=== PATIENT | female | born 1990 | race Caucasian/White ===

== ENCOUNTER 2016-05-05 15:37 | Emergency (ER) | payer SELFPAY ==
[~2016-05-05] VITALS: Ht 167.6 cm; Wt 65.0 kg
[~2016-05-05 15:37] MED LIST: PREVTAB PO; TYLE3 PO; ZOFR4TAB3 PO
[2016-05-05 15:42] VITALS: BP 154/88; PULSE 80; RESP 20; TEMP 98.3; O2SAT 97
[2016-05-05 16:07] LABS: BASOPHIL % 0.5 % (0.0-2.0); EOSINOPHIL # 0.2 TH/MM3 (0-0.4); EOSINOPHIL % 2.1 % (0.0-4.0); HEMATOCRIT 38.7 % (35.0-46.0); HEMO FLAGS DIFF FINAL; LYMPH % 33.9 % (9.0-44.0); LYMPHOCYTE # 2.5 TH/MM3 (1.0-4.8); MEAN CELL VOLUME 90.9 FL (80.0-100.0); MEAN CORPUSCULAR HEMOGLOBIN 30.8 PG (27.0-34.0); MEAN CORPUSCULAR HGB CONC 33.9 % (32.0-36.0); MONO % 9.3 % (0.0-8.0); NEUT % 54.2 % (16.0-70.0); PLATELET COUNT 231 TH/MM3 (150-450); RED BLOOD COUNT 4.26 MIL/MM3 (4.00-5.30); RED CELL DISTRIBUTION WIDTH 12.7 % (11.6-17.2); WHITE BLOOD COUNT 7.3 TH/MM3 (4.0-11.0)
[2016-05-05] MEDS ORDERED: SODIUM CHLOR 0.9% 1000 ML INJ 1,000 ML IV ONE (16:15)
[2016-05-05 16:16] LABS: BLOOD, URINE NEG (NEG); GLUCOSE,URINE NEG (NEG); KETONE, URINE NEG (NEG); NITRITE,URINE NEG (NEG); PH, URINE 6.5 (5.0-8.5); SQUAMOUS EPITHELIAL CELL URINE <1 /hpf (0-5); URINE COLOR LIGHT-YELLOW (YELLW/STRAW)
--- NOTE | 2016-05-05 16:18 | PD ---
HPI Chief Complaint: Cold / Flu Symptoms Time Seen by Provider: 16:14 Travel History International Travel<30 days: No Contact w/Intl Traveler<30days: No Traveled to known affect area: No History of Present Illness HPI 25-year-old female presents to the emergency department for evaluation of flulike symptoms for 2 days. She reports congestion, cough, intermittent headaches, fever, sore throat. She also reports right flank pain. Patient states her fever has been up to 101. She states this was yesterday evening. 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 Patient denies any chronic medical problems. She takes no prescribed medications. She is not on control. She denies any recent travel or surgery. No hemoptysis. She denies any history of asthma, COPD, pneumonia. Patient denies any abdominal pain. No vomiting. PFSH Past Medical History Arthritis: No Asthma: No Blood Disorders: No Anxiety: Yes Depression: No Heart Rhythm Problems: No Cancer: No Cardiovascular Problems: No High Cholesterol: No Chemotherapy: No Chest Pain: No Congestive Heart Failure: No COPD: No Cerebrovascular Accident: No Diminished Hearing: No Endocrine: Yes (hypoglycemic) GERD: No Genitourinary: Yes (pyelonephritis and UTIs) Headaches: Yes Hiatal Hernia: No Immune Disorder: Yes (chris dempsey) Kidney Stones: No Musculoskeletal: No Neurologic: Yes (SEIZURES) Psychiatric: Yes Reproductive: No Respiratory: Yes (R/T SEIZURES) Migraines: No Radiation Therapy: No Renal Failure: No Seizures: Yes (PSEUDO-NOT TAKING MEDICATIONS) Sickle Cell Disease: No Sleep Apnea: No Thyroid Disease: No Ulcer: No PNEUMOCCOCAL Vaccine (Year): 2 ?: Not Menopausal: No : 0 Para: 0 Miscarriage: 0 : 0 Ovarian Cysts: Yes (hemorrhagic right ovarian cyst 12-31-12) Past Surgical History Abdominal Surgery: No AICD: No Arteriovenous Shunt: No Cardiac Surgery: No Ear Surgery: No Endocrine Surgery: No Eye Surgery: No Genitourinary Surgery: No Insulin Pump: No Joint Replacement: No Oral Surgery: No Pacemaker: No Thoracic Surgery: No Other Surgery: Yes () Social History Alcohol Use: Yes (OCCASIONAL) Tobacco Use: No Substance Use: No Allergies-Medications (Allergen,Severity, Reaction): Coded Allergies: Bactrim (Verified Allergy, Severe, HIVES/SOB, 01/28/16) Sulfa (Verified Allergy, Severe, HIVES/SOB, 01/28/16) Tegretol (Verified Allergy, Severe, rash/NIGHTMARES, 01/28/16) Tramadol (Verified Allergy, Severe, 01/28/16) Ambien (Verified Adverse Reaction, Unknown, NONE, 01/28/16) PT STATES SHE IS NOT ALLERGIC Reported Meds & Prescriptions Reported Meds & Active Scripts Active No Active Prescriptions or Reported Medications Review of Systems Except as stated in HPI: all other systems reviewed are Neg Physical Exam Narrative GENERAL: Well-developed well-nourished female patient, ambulatory. Afebrile. SKIN: Warm and dry. HEAD: Normocephalic. Atraumatic. ENT: Mucosa pink and moist. Mild erythema without exudates. No uvular edema. No uvular, palatal, or tonsillar deviation. Airway patent. Nasal turbinates appear normal without nasal blood, purulent drainage or septal hematoma. Bilateral tympanic membranes are clear without erythema or perforation. EYES: No scleral icterus. No injection or drainage. NECK: Supple, trachea midline. No JVD or lymphadenopathy. CARDIOVASCULAR: Regular rate and rhythm without murmurs, gallops, or rubs. RESPIRATORY: Breath sounds equal bilaterally. No accessory muscle use. Lungs sounds are clear to auscultation. GASTROINTESTINAL: Abdomen soft, non-tender, nondistended. MUSCULOSKELETAL: No cyanosis, or edema. BACK: Nontender without obvious deformity. Mild right CVA tenderness. Data Data Last Documented VS Vital Signs Date Time Temp Pulse Resp B/P Pulse Ox O2 Delivery O2 Flow Rate FiO2 05/05/16 15:42 98.3 80 20 154/88 97 Room Air Orders Urinalysis - C+S If Indicated (05/05/16 15:44) Ed Urine Pregnancytest Poc (05/05/16 15:44) Complete Blood Count With Diff (05/05/16 15:44) Basic Metabolic Panel (Bmp) (05/05/16 15:44) Influenzae A/B Antigen (05/05/16 15:44) Group A Rapid Strep Screen (05/05/16 16:13) Sodium Chlor 0.9% 1000 Ml Inj (Ns 1000 M (05/05/16 16:15) Ibuprofen (Motrin) (05/05/16 16:45) Strep Culture (Group A) (05/05/16 16:35) Labs Laboratory Tests Test 05/05/16 15:50 White Blood Count 7.3 TH/MM3 Red Blood Count 4.26 MIL/MM3 Hemoglobin 13.1 GM/DL Hematocrit 38.7 % Mean Corpuscular Volume 90.9 FL Mean Corpuscular Hemoglobin 30.8 PG Mean Corpuscular Hemoglobin 33.9 % Concent Red Cell Distribution Width 12.7 % Platelet Count 231 TH/MM3 Mean Platelet Volume 8.1 FL Neutrophils (%) (Auto) 54.2 % Lymphocytes (%) (Auto) 33.9 % Monocytes (%) (Auto) 9.3 % Eosinophils (%) (Auto) 2.1 % Basophils (%) (Auto) 0.5 % Neutrophils # (Auto) 4.0 TH/MM3 Lymphocytes # (Auto) 2.5 TH/MM3 Monocytes # (Auto) 0.7 TH/MM3 Eosinophils # (Auto) 0.2 TH/MM3 Basophils # (Auto) 0.0 TH/MM3 CBC Comment DIFF FINAL Differential Comment Urine Color LIGHT-YELLOW Urine Turbidity CLEAR Urine pH 6.5 Urine Specific [place] 1.016 Urine Protein NEG mg/dL Urine Glucose (UA) NEG mg/dL Urine Ketones NEG mg/dL Urine Occult Blood NEG Urine Nitrite NEG Urine Bilirubin NEG Urine Urobilinogen LESS THAN 2.0 MG/DL Urine Leukocyte Esterase NEG Urine RBC LESS THAN 1 /hpf Urine WBC LESS THAN 1 /hpf Urine Squamous Epithelial <1 /hpf Cells Microscopic Urinalysis Comment CULT NOT INDICATED Sodium Level 137 MEQ/L Potassium Level 3.9 MEQ/L Chloride Level 106 MEQ/L Carbon Dioxide Level 23.6 MEQ/L Anion Gap 7 MEQ/L Blood Urea Nitrogen 12 MG/DL Creatinine 0.80 MG/DL Estimat Glomerular Filtration 87 ML/MIN Rate Random Glucose 84 MG/DL Calcium Level 8.2 MG/DL [facility] Medical Decision Making Medical Screen Exam Complete: Yes Emergency Medical Condition: Yes Medical Record Reviewed: Yes Differential Diagnosis Influenza versus strep pharyngitis versus UTI Narrative Course 25-year-old female presents to the emergency department for evaluation of flulike symptoms for 2 days. Workup was initiated by protocol in triage. CBC, BMP, UA, influenza, strep swab are ordered and pending. Urine test is negative. CBC shows no acute abnormalities. BMP shows no acute abnormalities. UA is negative for infection. Influenza is negative. Strep is negative. Symptoms are most consistent with a viral syndrome. She is to rest. Tylenol or her Motrin [id number]. Her primary care physician. She is to return for any acute worsening of symptoms. Diagnosis Primary Impression: Viral syndrome Referrals: Primary Care Physician call for appointment Patient Instructions: General Instructions, Viral Syndrome (ED) Departure Forms: Tests/Procedures, Work Release Enter return to work date: May 08, 2016 Additional Instructions: Rest. Tylenol/Motrin as needed. Follow up with a primary care physician. Return to the emergency department for any acute worsening of symptoms. Med/Other Pt SpecificInfo: No Change to Meds Scripts No Active Prescriptions or Reported Meds Disposition: 01 DISCHARGE HOME Condition: Stable Arlin Craig May 05, 2016 16:18
[2016-05-05 16:21] LABS: COMMENT (UR) CULT NOT INDICATED; CULTURE IF INDICATED CULT NOT INDICATED
[2016-05-05 16:22] LABS: BICARBONATE 23.6 MEQ/L (21.0-32.0); POTASSIUM 3.9 MEQ/L (3.5-5.1)
[2016-05-05] MEDS ORDERED: IBUPROFEN 600 MG TAB PO ONE (16:45)
[2016-05-05 18:26] VITALS: BP 131/70
== END 2016-05-05 18:28 | disposition home or self-care (01) ==
LOC: NEPC 15:37
DX: B34.9 Viral infection, unspecified (principal)
CPT/HCPCS: 80048; 81001; 84703; 85025; 87081; 87804; 87880; 96360; 99284; J7030

== ENCOUNTER 2016-10-01 17:22 | Emergency (ER) | payer SELFPAY ==
[~2016-10-01] VITALS: Ht 167.6 cm; Wt 59.0 kg
[2016-10-01 17:23] VITALS: BP 112/79; PULSE 78; RESP 15; TEMP 98.2; O2SAT 98
--- NOTE | 2016-10-01 17:35 | PD ---
Physical Exam Date Seen by Provider: October 01, 2016 Time Seen by Provider: 17:34 Narrative 26 yo female here for evaluation of weakness, vaginal bleeding. Nausea and vomiting. Not able to keep anything down. Per patient about two weeks she had "ruptured cysts". She has been bleeding a lot. Headache. Feet pain as well. Pain is 8/10. Vitals sign stable. Patient awaiting bed placement. Data Data Last Documented VS Vital Signs Date Time Temp Pulse Resp B/P Pulse Ox O2 Delivery O2 Flow Rate FiO2 10/01/16 17:23 98.2 78 15 112/79 98 MDM Medical Record Reviewed: Yes Supervised Visit with DARREN: No Scripts No Active Prescriptions or Reported Meds Juancho Glass October 01, 2016 17:35
[2016-10-01 18:04] VITALS: BP 120/73; PULSE 66; RESP 18; TEMP 99.1; O2SAT 99
[2016-10-01] MEDS ORDERED: DOXY1CAP91 (18:12)
[2016-10-01] MEDS ORDERED: SODIUM CHLOR 0.9% 1000 ML INJ 1,000 ML IV SCH (18:18)
--- NOTE | 2016-10-01 18:23 | PD ---
HPI Chief Complaint: [employer] Problem/Complaint Time Seen by Provider: 18:12 Travel History International Travel<30 days: No Contact w/Intl Traveler<30days: No Traveled to known affect area: No History of Present Illness HPI This patient was evaluated in the presence of a female nurse. 26-year-old female with history of endometriosis, ovarian cyst presents for evaluation of vaginal bleeding, abdominal pain, nausea and vomiting. She's been having lower abdominal cramping for 2 weeks. She was seen at an emergency room at [facility] on September 19. She reports ultrasound, lab work, pelvic examination was performed. She was told that she has bacterial vaginosis as well as likely some ruptured cysts. She was given prescriptions for Flagyl, Zofran, doxycycline. She has completed the Flagyl, using doxycycline as prescribed, cannot afford the Zofran. Her symptoms have persisted. She has had some vaginal bleeding for the past several days as well as difficulty keeping any food or fluid down. She is feeling generally weak. She reports irregular menstrual periods, does not know when her last one was. She has been using oxycodone for pain control. Denies any fevers or chills, dysuria, flank pain. No other complaints. PFSH Past Medical History Arthritis: No Asthma: No Blood Disorders: No Anxiety: Yes Depression: No Heart Rhythm Problems: No Cancer: No Cardiovascular Problems: No High Cholesterol: No Chemotherapy: No Chest Pain: No Congestive Heart Failure: No COPD: No Cerebrovascular Accident: No Diminished Hearing: No Endocrine: Yes (hypoglycemic) Gastrointestinal Disorders: No GERD: No Genitourinary: Yes (pyelonephritis and UTIs) Headaches: Yes Hiatal Hernia: No Heparin Induced Thrombocytopen: No Hypertension: No Immune Disorder: Yes (chris dempsey) Implanted Vascular Access Dvce: No Kidney Stones: No Musculoskeletal: No Neurologic: Yes (SEIZURES) Psychiatric: Yes Reproductive: No Respiratory: Yes (R/T SEIZURES) Migraines: No Radiation Therapy: No Renal Failure: No Seizures: Yes Sickle Cell Disease: No Sleep Apnea: No Thyroid Disease: No Ulcer: No PNEUMOCCOCAL Vaccine (Year): 2 ?: Unknown LMP: august 2016 Menopausal: No : 0 Para: 0 Miscarriage: 0 : 0 Ovarian Cysts: Yes Past Surgical History Abdominal Surgery: No AICD: No Arteriovenous Shunt: No Cardiac Surgery: No Ear Surgery: No Endocrine Surgery: No Eye Surgery: No Genitourinary Surgery: No Gynecologic Surgery: Yes (2013) Insulin Pump: No Joint Replacement: No Neurologic Surgery: No Oral Surgery: No Pacemaker: No Thoracic Surgery: No Other Surgery: Yes () Social History Alcohol Use: No Tobacco Use: No Substance Use: No Allergies-Medications (Allergen,Severity, Reaction): Coded Allergies: Bactrim (Verified Allergy, Severe, HIVES/SOB, 10/01/16) Sulfa (Verified Allergy, Severe, HIVES/SOB, 10/01/16) Tegretol (Verified Allergy, Severe, rash/NIGHTMARES, 10/01/16) Tramadol (Verified Allergy, Severe, 10/01/16) Ambien (Verified Adverse Reaction, Unknown, NONE, 10/01/16) PT STATES SHE IS NOT ALLERGIC Reported Meds & Prescriptions Reported Meds & Active Scripts Active Ranitidine (Ranitidine HCl) 150 Mg Tab 150 Mg PO BID 14 Days Reglan (Metoclopramide HCl) 10 Mg Tab 10 Mg PO TIDAC 5 Days Reported Doxycycline (Doxycycline (Monohydrate)) 100 Mg Cap 100 Mg BID Review of Systems Except as stated in HPI: all other systems reviewed are Neg Physical Exam Narrative GENERAL: Well-developed well-nourished female in no acute distress SKIN: Warm and dry. HEAD: Atraumatic. Normocephalic. EYES: Pupils equal and round. No scleral icterus. No injection or drainage. ENT: No nasal bleeding or discharge. Mucous membranes pink and moist. NECK: Trachea midline. No JVD. CARDIOVASCULAR: Regular rate and rhythm. No murmur appreciated. RESPIRATORY: No accessory muscle use. Clear to auscultation. Breath sounds equal bilaterally. GASTROINTESTINAL: Abdomen soft, mild tenderness to palpation in lower quadrants without guarding. MUSCULOSKELETAL: No obvious deformities. No edema. NEUROLOGICAL: Awake and alert. No obvious cranial nerve deficits. Motor grossly within normal limits. Normal speech. PSYCHIATRIC: Appropriate mood and affect; insight and judgment normal. Data Data Last Documented VS Vital Signs Date Time Temp Pulse Resp B/P Pulse Ox O2 Delivery O2 Flow Rate FiO2 10/01/16 20:15 70 18 111/52 98 Room Air 10/01/16 18:04 99.1 Orders Complete Blood Count With Diff (10/01/16 18:18) Comprehensive Metabolic Panel (10/01/16 18:18) Urinalysis - C+S If Indicated (10/01/16 18:18) Iv Access Insert/Monitor (10/01/16 18:18) Ed Urine Pregnancytest Poc (10/01/16 18:18) Lipase (10/01/16 18:18) Ondansetron Inj (Zofran Inj) (10/01/16 18:30) Sodium Chlor 0.9% 1000 Ml Inj (Ns 1000 M (10/01/16 18:18) Ketorolac Inj (Toradol Inj) (10/01/16 18:30) Pantoprazole Inj (Protonix Inj) (10/01/16 20:30) Dicyclomine Inj (Bentyl Inj) (10/01/16 20:30) Al-Mag Hy-Si 40-40-4 Mg/Ml Liq (Mag-Al P (10/01/16 20:30) Lidocaine 2% Viscous (Xylocaine 2% Visco (10/01/16 20:30) Us Pelvis Comp W Dop Transvag (10/01/16 18:18) Ondansetron Inj (Zofran Inj) (10/01/16 21:45) Labs Laboratory Tests Test 10/01/16 10/01/16 18:20 19:30 White Blood Count 5.8 TH/MM3 Red Blood Count 4.15 MIL/MM3 Hemoglobin 12.6 GM/DL Hematocrit 38.2 % Mean Corpuscular Volume 92.0 FL Mean Corpuscular Hemoglobin 30.3 PG Mean Corpuscular Hemoglobin 33.0 % Concent Red Cell Distribution Width 12.2 % Platelet Count 233 TH/MM3 Mean Platelet Volume 8.3 FL Neutrophils (%) (Auto) 54.1 % Lymphocytes (%) (Auto) 40.1 % Monocytes (%) (Auto) 4.6 % Eosinophils (%) (Auto) 1.0 % Basophils (%) (Auto) 0.2 % Neutrophils # (Auto) 3.1 TH/MM3 Lymphocytes # (Auto) 2.3 TH/MM3 Monocytes # (Auto) 0.3 TH/MM3 Eosinophils # (Auto) 0.1 TH/MM3 Basophils # (Auto) 0.0 TH/MM3 CBC Comment DIFF FINAL Differential Comment Sodium Level 141 MEQ/L Potassium Level 4.0 MEQ/L Chloride Level 106 MEQ/L Carbon Dioxide Level 25.6 MEQ/L Anion Gap 9 MEQ/L Blood Urea Nitrogen 9 MG/DL Creatinine 0.67 MG/DL Estimat Glomerular Filtration 106 ML/MIN Rate Random Glucose 86 MG/DL Calcium Level 9.0 MG/DL Total Bilirubin 0.8 MG/DL Aspartate Amino Transf 16 U/L (AST/SGOT) Alanine Aminotransferase 22 U/L (ALT/SGPT) Alkaline Phosphatase 39 U/L Total Protein 7.3 GM/DL Albumin 4.2 GM/DL Lipase 90 U/L Urine Color YELLOW Urine Turbidity HAZY Urine pH 5.5 Urine Specific [place] 1.015 Urine Protein NEG mg/dL Urine Glucose (UA) NEG mg/dL Urine Ketones NEG mg/dL Urine Occult Blood TRACE Urine Nitrite NEG Urine Bilirubin NEG Urine Urobilinogen LESS THAN 2.0 MG/DL Urine Leukocyte Esterase NEG Urine RBC 1 /hpf Urine WBC 1 /hpf Urine Squamous Epithelial 7 /hpf Cells Urine Mucus FEW /lpf Microscopic Urinalysis Comment CULT NOT INDICATED MDM Medical Decision Making Medical Screen Exam Complete: Yes Emergency Medical Condition: Yes Medical Record Reviewed: Yes Differential Diagnosis Abnormal uterine bleeding, ruptured ovarian cyst, cystitis, ovarian torsion, pelvic inflammatory disease, tubo-ovarian abscess, endometriosis, dysmenorrhea Narrative Course 26 her old female with history of endometriosis presents with pelvic cramping for the past few weeks, nausea and vomiting, vaginal bleeding over the past several days. Seen at an outside emergency room where lab work, imaging studies were performed and she was told that she likely had a ruptured ovarian cyst as well as bacterial vaginosis. She was unable to afford the Zofran. She has been using doxycycline, Flagyl and oxycodone as prescribed. Examination reveals mild tenderness to palpation in the lower abdomen. Otherwise unremarkable. Vital signs are stable. She does not appear acutely dehydrated on initial examination. Plan is for basic lab work, ultrasound, IV fluids, Zofran and Toradol. Lab work is been reviewed. Labwork is essentially unremarkable. Upon reexamiantion she endorses some burning epigastric discomfort, therefore Protonix, GI cocktail and Bentyl has been ordered. The patient was signed out pending US results at the end of my shift, likely disposition home. Scripts Ranitidine 150 Mg [id number] Mg PO BID 14 Days Ref 0 Prov:Elis Prado MD 10/01/16 Metoclopramide (Reglan)10 Mg Tab10 Mg PO TIDAC 5 Days Ref 0 Prov:Elis Prado MD 10/01/16 Ortiz Escalante October 01, 2016 18:23
[2016-10-01] MEDS ORDERED: ONDANSETRON HCL 4 MG/2 ML VIAL IVP ONE (18:30)
[2016-10-01] MEDS ORDERED: KETOROLAC TROMETHAMINE 30 MG/ML (IVP) VIAL IVP ONE (18:30)
[2016-10-01 18:34] VITALS: BP 119/81; PULSE 57; RESP 15; O2SAT 98
[2016-10-01 19:08] LABS: AUTOMATED NEUTROPHIL # 3.1 TH/MM3 (1.8-7.7); BASOPHIL % 0.2 % (0.0-2.0); EOSINOPHIL # 0.1 TH/MM3 (0-0.4); HEMATOCRIT 38.2 % (35.0-46.0); HEMO FLAGS DIFF FINAL; LYMPH % 40.1 % (9.0-44.0); LYMPHOCYTE # 2.3 TH/MM3 (1.0-4.8); MEAN CORPUSCULAR HEMOGLOBIN 30.3 PG (27.0-34.0); MONO % 4.6 % (0.0-8.0); NEUT % 54.1 % (16.0-70.0); PLATELET COUNT 233 TH/MM3 (150-450); RED BLOOD COUNT 4.15 MIL/MM3 (4.00-5.30); RED CELL DISTRIBUTION WIDTH 12.2 % (11.6-17.2); WHITE BLOOD COUNT 5.8 TH/MM3 (4.0-11.0)
[2016-10-01 19:26] LABS: ALT (GPT) 22 U/L (10-53); ANION GAP 9 MEQ/L (5-15); AST (GOT) 16 U/L (15-37); BICARBONATE 25.6 MEQ/L (21.0-32.0); BLOOD UREA NITROGEN 9 MG/DL (7-18); CHLORIDE 106 MEQ/L (98-107); GLOMERULAR FILTRATION RATE 106 ML/MIN (>89); SODIUM (NA) 141 MEQ/L (136-145)
[2016-10-01 19:28] LABS: ALKALINE PHOSPHATASE 39 U/L (45-117); TOTAL BILIRUBIN ADULT 0.8 MG/DL (0.2-1.0)
[2016-10-01 19:49] LABS: BLOOD, URINE TRACE (NEG); COMMENT (UR) CULT NOT INDICATED; CULTURE IF INDICATED CULT NOT INDICATED; GLUCOSE,URINE NEG (NEG); KETONE, URINE NEG (NEG); MUCUS URINE FEW /lpf (OCC); NITRITE,URINE NEG (NEG); PH, URINE 5.5 (5.0-8.5); SQUAMOUS EPITHELIAL CELL URINE 7 /hpf (0-5); URINE COLOR YELLOW (YELLW/STRAW)
[2016-10-01 20:15] VITALS: BP 111/52; PULSE 70; RESP 18; O2SAT 98
[2016-10-01] MEDS ORDERED: DICYCLOMINE HCL 20 MG/2 ML VIAL IM ONE (20:30)
[2016-10-01] MEDS ORDERED: LIDOCAINE VISCOUS 2% SOLN 15 ML UDC PO ONE (20:30)
[2016-10-01] MEDS ORDERED: ALUMINUM/MAGNESIUM/SIMETH 30 ML CUP PO ONE (20:30)
[2016-10-01] MEDS ORDERED: PANTOPRAZOLE SODIUM 40 MG VIAL IVP ONE (20:30)
[2016-10-01] MEDS ORDERED: ONDANSETRON HCL 4 MG/2 ML VIAL IV PUSH ONE (21:45)
--- NOTE | 2016-10-01 21:58 | RADRPT ---
EXAM DATE/TIME: 10/01/2016 20:51 [facility] COMPARISON: No previous studies available for comparison. INDICATIONS : Pelvic pain. MEDICAL HISTORY : . Seizures. Ovarian cysts. Endometreosis. Pyelonephritis. Hypoglycemia. Anxiety. Didi dempsey syndrome. SURGICAL HISTORY : Laproscopic endometriosis removal. ENCOUNTER: Initial ACUITY: 2 weeks PAIN SCORE: 9/10 LOCATION: Bilateral pelvis MEASUREMENTS: UTERUS: 6.9 x 4.3 x 3.0 cm ENDOMETRIAL STRIPE: 5 mm RIGHT OVARY: 4.5 x 3.0 x 2.1 cm LEFT OVARY: 4.0 x 2.6 x 2.1 cm FINDINGS: UTERUS: The myometrium has homogeneous echotexture without mass.Uterus is retroverted. RIGHT OVARY: Ovary contains no mass or significant cystic lesion.Follicular cysts are noted. LEFT OVARY: Ovary contains no mass or significant cystic lesion.Follicular cysts are noted. MISCELLANEOUS: Trace amount of free fluid. CONCLUSION: Trace amount of free fluid observed. No acute abnormality. Jamie Fields Jr., MD on October 01, 2016 at 21:54 Board Certified Radiologist. This report was verified electronically.
[2016-10-01] MEDS ORDERED: RANI150T PO (22:13)
[2016-10-01] MEDS ORDERED: REGL10TA5 PO (22:13)
--- NOTE | 2016-10-01 22:14 | PD ---
Physical Exam Time Seen by Provider: 22:14 Narrative The patient was signed out to me pending ultrasound results. Data Data Last Documented VS Vital Signs Date Time Temp Pulse Resp B/P Pulse Ox O2 Delivery O2 Flow Rate FiO2 10/01/16 20:15 70 18 111/52 98 Room Air 10/01/16 18:04 99.1 Orders Complete Blood Count With Diff (10/01/16 18:18) Comprehensive Metabolic Panel (10/01/16 18:18) Urinalysis - C+S If Indicated (10/01/16 18:18) Iv Access Insert/Monitor (10/01/16 18:18) Ed Urine Pregnancytest Poc (10/01/16 18:18) Lipase (10/01/16 18:18) Ondansetron Inj (Zofran Inj) (10/01/16 18:30) Sodium Chlor 0.9% 1000 Ml Inj (Ns 1000 M (10/01/16 18:18) Ketorolac Inj (Toradol Inj) (10/01/16 18:30) Pantoprazole Inj (Protonix Inj) (10/01/16 20:30) Dicyclomine Inj (Bentyl Inj) (10/01/16 20:30) Al-Mag Hy-Si 40-40-4 Mg/Ml Liq (Mag-Al P (10/01/16 20:30) Lidocaine 2% Viscous (Xylocaine 2% Visco (10/01/16 20:30) Us Pelvis Comp W Dop Transvag (10/01/16 18:18) Ondansetron Inj (Zofran Inj) (10/01/16 21:45) Labs Laboratory Tests Test 10/01/16 10/01/16 18:20 19:30 White Blood Count 5.8 TH/MM3 Red Blood Count 4.15 MIL/MM3 Hemoglobin 12.6 GM/DL Hematocrit 38.2 % Mean Corpuscular Volume 92.0 FL Mean Corpuscular Hemoglobin 30.3 PG Mean Corpuscular Hemoglobin 33.0 % Concent Red Cell Distribution Width 12.2 % Platelet Count 233 TH/MM3 Mean Platelet Volume 8.3 FL Neutrophils (%) (Auto) 54.1 % Lymphocytes (%) (Auto) 40.1 % Monocytes (%) (Auto) 4.6 % Eosinophils (%) (Auto) 1.0 % Basophils (%) (Auto) 0.2 % Neutrophils # (Auto) 3.1 TH/MM3 Lymphocytes # (Auto) 2.3 TH/MM3 Monocytes # (Auto) 0.3 TH/MM3 Eosinophils # (Auto) 0.1 TH/MM3 Basophils # (Auto) 0.0 TH/MM3 CBC Comment DIFF FINAL Differential Comment Sodium Level 141 MEQ/L Potassium Level 4.0 MEQ/L Chloride Level 106 MEQ/L Carbon Dioxide Level 25.6 MEQ/L Anion Gap 9 MEQ/L Blood Urea Nitrogen 9 MG/DL Creatinine 0.67 MG/DL Estimat Glomerular Filtration 106 ML/MIN Rate Random Glucose 86 MG/DL Calcium Level 9.0 MG/DL Total Bilirubin 0.8 MG/DL Aspartate Amino Transf 16 U/L (AST/SGOT) Alanine Aminotransferase 22 U/L (ALT/SGPT) Alkaline Phosphatase 39 U/L Total Protein 7.3 GM/DL Albumin 4.2 GM/DL Lipase 90 U/L Urine Color YELLOW Urine Turbidity HAZY Urine pH 5.5 Urine Specific [place] 1.015 Urine Protein NEG mg/dL Urine Glucose (UA) NEG mg/dL Urine Ketones NEG mg/dL Urine Occult Blood TRACE Urine Nitrite NEG Urine Bilirubin NEG Urine Urobilinogen LESS THAN 2.0 MG/DL Urine Leukocyte Esterase NEG Urine RBC 1 /hpf Urine WBC 1 /hpf Urine Squamous Epithelial 7 /hpf Cells Urine Mucus FEW /lpf Microscopic Urinalysis Comment CULT NOT INDICATED MDM Supervised Visit with DARREN: No Narrative Course The patient was signed out to me pending pelvic ultrasound results. Please see previous provider's documentation. Essentially this is a 26-year-old female with a history of recurrent pelvic pain secondary to endometriosis with ovarian cysts. She's had pelvic pain for the past 2 weeks and was seen at an outside hospital and told that she had probable ruptured ovarian cysts. The patient states that she's had vaginal bleeding for the last several days and has had nausea and vomiting for 3 days. She is reporting she has a history of gastric ulcer. States that when she has come here for today is because she is having epigastric burning with nausea and vomiting for 3 days. Epigastric pain is aggravated with eating. Abdominal examination reveals mild epigastric tenderness and mild pelvic tenderness. Overall abdominal examination is benign , no peritoneal signs. Patient has been given Toradol, Zofran, GI cocktail, Protonix and Bentyl with some improvement of symptoms. Labs are completely unremarkable. Pelvic ultrasound shows trace amount of free fluid with no acute abnormality. I discussed all findings with the patient. She'll be discharged with Zantac and Reglan. She is instructed to follow up as an outpatient with her PCP. I discussed with the patient that should she develop any worsening of symptoms such as fever, intractable nausea and vomiting, worsening abdominal pain that she return immediately to the emergency department. Patient verbalizes understanding and agreement with treatment plan. Diagnosis Primary Impression: Gastritis Qualified Code: K29.00 - Acute gastritis without hemorrhage, unspecified gastritis type Additional Impression: Pelvic pain Referrals: Primary Care Physician Patient Instructions: General Instructions Additional Instruction: Take medications as prescribed. Follow-up with your Primary Care Physician. Return to the ED for any acute worsening of symptoms. Med/Other Pt SpecificInfo: Prescription(s) given Scripts Ranitidine 150 Mg [id number] Mg PO BID 14 Days Ref 0 Prov:Elis Prado MD 10/01/16 Metoclopramide (Reglan)10 Mg Tab10 Mg PO TIDAC 5 Days Ref 0 Prov:Elis Prado MD 10/01/16 Disposition: 01 DISCHARGE HOME Condition: Stable Rashida Alcantara October 01, 2016 22:14
== END 2016-10-01 23:22 | disposition home or self-care (01) ==
LOC: NEPD 17:22
DX: K29.00 Acute gastritis without bleeding (principal); R10.2 Pelvic and perineal pain
CPT/HCPCS: 76830; 76856; 80053; 81001; 83690; 84703; 85025; 93975; 96361; 96372; 96374; 96375; 96376; 99285; C9113; J0500; J1885; J2405; J7030

== ENCOUNTER → 2016-12-27 | Outpatient (CLI) | payer OTHER ==
[~2016-12-27] MED LIST changes: +DOXY1CAP91; -PREVTAB PO; +RANI150T PO; +REGL10TA5 PO; -TYLE3 PO; -ZOFR4TAB3 PO
--- NOTE | 2016-12-27 11:45 | RADRPT ---
EXAM DATE/TIME: 12/27/2016 10:37 [facility] COMPARISON: US PELVIS - COMPLETE ([employer],NON-PREG), August 10, 2013, 9:56. INDICATIONS : Pelvic pain with heavy menstrual periods. MEDICAL HISTORY : Seizures. Dyspnea. Ovarian cysts. Hypoglycemic. UTI. SURGICAL HISTORY : None. ENCOUNTER: Initial ACUITY: > 1 year PAIN SCORE: 7/10 LOCATION: Bilateral pelvis MEASUREMENTS: UTERUS: 7.4 x 3.0 x 4.2 cm ENDOMETRIAL STRIPE: 3 mm RIGHT OVARY: 2.8 x 1.4 x 1.4 cm LEFT OVARY: 3.1 x 2.4 x 2.3 cm FINDINGS: UTERUS: The myometrium has homogeneous echotexture without mass. RIGHT OVARY: Ovary contains no mass or significant cystic lesion. Follicles are present. LEFT OVARY: Ovary contains no mass or significant cystic lesion. Follicles are present. MISCELLANEOUS: There is trace free fluid. CONCLUSION: Normal transabdominal pelvis ultrasound. Ramakrishna Degroot MD on December 27, 2016 at 11:42 Board Certified Radiologist. This report was verified electronically.
== END ==
LOC: HRAD 10:01
PROVIDERS: ATTEND Family Medicine
DX: N92.0 Excessive and frequent menstruation with regular cycle (principal)
CPT/HCPCS: 76856

== ENCOUNTER 2017-08-25 12:42 | Emergency (ER) | payer OTHER ==
[~2017-08-25] VITALS: Ht 167.6 cm; Wt 60.5 kg
[~2017-08-25 12:42] MED LIST changes: -DOXY1CAP91; +LO LTAB PO; +METR1TAB76 PO; -RANI150T PO; -REGL10TA5 PO
[2017-08-25 13:04] VITALS: BP 129/78; PULSE 87; RESP 20; TEMP 98.8; O2SAT 98
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
[2017-08-25] MEDS ORDERED: LEXA20TA PO (14:31)
[2017-08-25] MEDS ORDERED: IBUPROFEN 800 MG TAB PO ONE (14:45)
[2017-08-25 16:14] VITALS: RESP 17
== END 2017-08-25 16:35 | disposition home or self-care (01) ==
LOC: NEPD 12:42
DX: T74.21XA Adult sexual abuse, confirmed, initial encounter (principal); N89.8 Other specified noninflammatory disorders of vagina; Y07.9 Unspecified perpetrator of maltreatment and neglect; F41.9 Anxiety disorder, unspecified; Z88.8 Allergy status to other drugs, medicaments and biological substances; Z79.899 Other long term (current) drug therapy; Z88.2 Allergy status to sulfonamides
CPT/HCPCS: 99281